=== PATIENT | female | born 1985 | race African-American/Black ===

== ENCOUNTER 2021-06-04 04:07 | Emergency (ER) | payer BC, OTHER ==
[2021-06-04 04:28] VITALS: BMI 44.1
[2021-06-04] MEDS ORDERED: ALBUTEROL SO4 2.5/IPRATROPIUM 0.5 INH SOL 3 ML VIAL.NEB. NEB ONE ×3 (05:21→06:02)
[2021-06-04 06:48] VITALS: BP 140/84; PULSE 63; TEMP 98.4
== END 2021-06-04 07:09 | disposition home or self-care (01) ==
LOC: JER 04:07
PROC: 3E0F7GC Introduction of Other Therapeutic Substance into Respiratory Tract, Via Natural or Artificial Opening (ICD-10-PCS; principal; 2021-06-04)
DX: R06.02 Shortness of breath (principal)
CPT/HCPCS: 87804; 87807; 99284-25; C9803; U0003; U0005